=== PATIENT | male | born 1975 | race Caucasian/White ===

== ENCOUNTER → 2017-12-26 08:50 | Outpatient (CLI) | payer OTHER, SELFPAY ==
--- NOTE | 2017-12-26 | DI.CT.S_ITS ---
PROCEDURE: CT CHEST W CON INDICATIONS: 42-year-old male with remote history of colon cancer, with left supraclavicular palpable mass. TECHNIQUE: After the administration of intravenous contrast, 2 mm and 5 mm thick sections acquired from the pulmonary apices to the posterior costophrenic angles. 7 mm thick coronal and sagittal MIP reformats were acquired. For radiation dose reduction, the following was used: automated exposure control, adjustment of mA and/or kV according to patient size. COMPARISON: None. FINDINGS: Image quality: Excellent. Lungs and pleura: No acute air space opacities. No pleural effusions or pneumothorax. Central and peripheral airways are patent and normal in caliber. Mediastinum: Heart size is normal. No pericardial effusion. No mediastinal or hilar adenopathy by size criteria. Thoracic aorta and central pulmonary arteries are normal in size. Esophagus is normal in caliber. No hiatal hernia. Bones and chest wall: No suspicious bony lesions. No vertebral body compression fractures. No axillary or supraclavicular adenopathy by size criteria. Thyroid gland is normal in size. Abdomen: Visualized upper abdominal solid organs appear normal. Upper abdominal bowel loops are normal in caliber. IMPRESSION: No imaging correlate with palpable left supraclavicular mass. Dictated by: Dave Campuzano M.D. on 12/26/2017 at 13:00 Approved by: Dave Campuzano M.D. on 12/26/2017 at 13:38
== END ==
PROVIDERS: Family Provider Family Medicine; PCP Family Medicine; Visit Provider Family Medicine
DX: M54.2 Cervicalgia (principal); R22.2 Localized swelling, mass and lump, trunk; Z85.038 Personal history of other malignant neoplasm of large intestine
CPT/HCPCS: 71260; Q9967

== ENCOUNTER 2018-05-05 20:24 | Emergency (ER) | payer OTHER, SELFPAY ==
[2018-05-05] VITALS (7 sets, daily range): BP systolic 114–147; BP diastolic 64–93; PULSE 87–102; RESP 12–22; TEMP 37.8; O2SAT 16–100; BMI 31.4
--- NOTE | 2018-05-05 20:44 | DI.RAD.S_ITS ---
PROCEDURE: XR CHEST 1V INDICATIONS: suspected sepsis, Left low chest pain. TECHNIQUE: One view of the chest was acquired. COMPARISON: [facility], , CHEST 2 VIEW, 04/06/2014, 19:15. FINDINGS: Surgical changes and devices: None. Lungs and pleura: No pleural effusions or pneumothorax. Lungs are clear. Mediastinum: Mediastinal contours appear normal. Heart size is normal. Bones and chest wall: No suspicious bony lesions. Overlying soft tissues appear unremarkable. IMPRESSION: 1. No acute cardiopulmonary disease. Dictated by: Bhavin Felton M.D. on 05/05/2018 at 20:59 Approved by: Bhavin Felton M.D. on 05/05/2018 at 20:59
[2018-05-05] MEDS: SODIUM CHLORIDE 0.9% 1,000 ML 1000 ML IV (20:49)
[2018-05-05 20:51] LABS: Add Manual Diff / Slide Review NO; Basophils Percent Auto 0.4 % (0-2); Eosinophils Percent Auto 1.4 % (2-4); Hematocrit 42.6 % (41-53); Hemoglobin 14.6 g/dL (13.5-17.5); Lymphocytes Percent Auto 15.2 % (25-40); Mean Corpuscular HGB Conc 34.1 % (30-36); Mean Corpuscular Hemoglobin 28.4 PG (26-34); Mean Corpuscular Volume 83.1 fL (80-100); Monocytes Percent Auto 9.2 % (3-14); Neutrophils Absolute Auto 12200 /uL (3000-5900); Neutrophils Percent Auto 73.8 % (50-75); Platelet Count 252 X10^3/uL (150-400); Red Blood Cell Count 5.13 X10^6/uL (4.5-5.9); Red Cell Distribution Width 12.7 % (11.6-14.8); White Blood Cell Count 16.5 X10^3/uL (4.5-11.0)
[2018-05-05 21:02] LABS: INR 1.1 (0.9-1.3); Prothrombin Time 11.6 SECONDS (10.1-12.7)
[2018-05-05 21:04] LABS: PTT Partial Thromboplastin Tim 26 SECONDS (26.4-36.2)
--- NOTE | 2018-05-05 21:05 | DI.CT.S_ITS ---
PROCEDURE: CT ANGIO CHEST PE PROTOCOL INDICATIONS: hx of colon cancer, left sided chest pain TECHNIQUE: After the administration of intravenous contrast, 2 mm thick sections acquired from the pulmonary apices to the posterior costophrenic angles. 3-dimensional maximum intensity projection (MIP) coronal and sagittal reformats were then acquired through the thorax. For radiation dose reduction, the following was used: automated exposure control, adjustment of mA and/or kV according to patient size. COMPARISON: [facility], CT, CT CHEST [facility], 12/26/2017, 8:56. FINDINGS: Image quality: Excellent. Pulmonary arteries: Pulmonary arteries are normal in size, and demonstrate no intraluminal filling defects to suggest central pulmonary embolism. Lungs and pleura: There is a small left pleural effusion. Mild dependent atelectasis is present. No focal consolidation. No suspicious mass lesions. The trachea and central airways appear patent. Mediastinum: Heart size is normal, without pericardial effusion. No mediastinal or hilar adenopathy. Thoracic aorta is normal in caliber and enhancement. Esophagus is normal in caliber, without hiatal hernia. Bones and chest wall: No suspicious bony lesions. Ribs and thoracic spine appear intact throughout. Thyroid gland demonstrates no discrete nodules. No axillary or supraclavicular adenopathy. Abdomen: Visualized upper abdominal solid organs appear normal in the early arterial phase of enhancement. IMPRESSION: 1. No evidence of pulmonary embolism. 2. Small nonspecific left pleural effusion. 3. No definite evidence of thoracic metastatic disease. Dictated by: Bhavin Felton M.D. on 05/05/2018 at 21:59 Approved by: Bhavin Felton M.D. on 05/05/2018 at 22:09
--- NOTE | 2018-05-05 21:05 | DI.CT.S_ITS ---
PROCEDURE: CT ABDOMEN PELVIS W CON INDICATIONS: left upper swelling pain, hx of colon cancer TECHNIQUE: After the administration of intravenous contrast, 5 mm thick sections acquired from the diaphragm to the symphysis. 5 mm coronal and sagittal reformats were acquired. For radiation dose reduction, the following was used: automated exposure control, adjustment of mA and/or kV according to patient size. COMPARISON: None. FINDINGS: Image quality: Excellent. ABDOMEN: Lung bases: There is a small left pleural effusion. Mild dependent atelectasis demonstrated bilaterally. Heart size is normal. Solid organs: Liver demonstrates no focal hepatic lesions. Gallbladder appears within normal limits without calcified gallstones. Biliary system is non dilated. Pancreas enhances normally. Spleen is normal in size and enhancement. No adrenal nodules. Kidneys demonstrate no hydronephrosis. There is a small left renal cyst. Peritoneum and bowel: Small bowel loops demonstrate normal wall thickness and caliber. There are postsurgical changes in the sigmoid colon consistent with partial colectomy. There is mild bowel wall thickening in the rectum. No free fluid or air. Nodes and vessels: No retroperitoneal or mesenteric adenopathy by size criteria. Aorta and inferior vena cava are normal in size. Miscellaneous: No ventral hernias. PELVIS: Genitourinary: Bladder wall thickness is normal. Miscellaneous: No inguinal hernias or adenopathy. Bones: No suspicious bony lesions. No vertebral body compression fractures. IMPRESSION: 1. Postsurgical changes status post partial colectomy. Mild segmental bowel wall thickening demonstrated in the rectum is nonspecific and may reflect a mild colitis. Recommend correlation clinically and colonoscopy if indicated. 2. Small left pleural effusion. 3. Elsewhere, no definite evidence of metastatic disease in abdomen or pelvis. Dictated by: Bhavin Felton M.D. on 05/05/2018 at 22:09 Approved by: Bhavin Felton M.D. on 05/05/2018 at 22:16
[2018-05-05 21:08] LABS: Alanine Aminotransferase 28 IU/L (21-72); Albumin 4.6 g/dL (3.5-5.0); Albumin Globulin Ratio 1.4 (1.0-2.8); Alkaline Phosphatase 57 U/L (38-126); Aspartate Aminotransferase 29 IU/L (17-59); BUN Creatinine Ratio 14.4 (6-22); Blood Urea Nitrogen 13 mg/dL (9-20); Calcium 9.4 mg/dL (8.4-10.2); Carbon Dioxide 29 mmol/L (22-32); Chloride 102 mmol/L (98-107); Creatine Kinase 117 U/L (55-170); Estimated Glomerular Filt Rate > 60.0 mL/min (>60); Globulin 3.2 g/dL (1.7-4.1); Glucose 108 mg/dL (70-100); HEMOLYSIS < 15 (0-50); Lipase 77 U/L (23-300); Potassium 3.5 mmol/L (3.4-5.1); Sodium 141 mmol/L (137-145); Total Protein 7.8 g/dL (6.3-8.2)
--- NOTE | 2018-05-05 21:08 | ED.CHESTPAIN ---
HPI - Chest Pain General Chief Complaint: Chest Pain Stated Complaint: COUGH DIZZY CHEST PAIN Time Seen by Provider: 05/05/18 20:47 Source: patient Mode of arrival: ambulatory Limitations: no limitations History of Present Illness HPI narrative: the patient is a 43-year-old male who presents with left-sided chest pain. States that he has had some pain and productive cough since April 24. 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 He does not notice any pain or discomfort while working but once home he has significant pain on the left. It sometimes hurts when he takes a deep breath. He denies feeling short of breath he is not dizzy or lightheaded. He states that his productive cough has overall gotten a little bit better his. He was sent from the walk-in clinic actually for inverted T-waves. No known history of coronary artery disease. He does have a history of colon cancer. both he and state that sometimes his left upper abdomen is swollen. He has not had any night sweats no significant weight loss. He took Motrin 600 mg earlier today. Frequent PVCs noted on monitor. He states that he does drink half pot of coffee daily. Denies any drug use or alcohol. He denies heart palpitations dizziness or lightheadedness. Related Data Home Medications Medication Instructions Recorded Confirmed aspirin 81 mg PO DAILY 05/05/18 05/05/18 atorvastatin 20 mg PO DAILY 05/05/18 05/05/18 hydrochlorothiazide 25 mg PO DAILY 05/05/18 05/05/18 Previous Rx's Medication Instructions Recorded levofloxacin 750 mg PO DAILY #5 tab 05/05/18 Allergies Allergy/AdvReac Type Severity Reaction Status Date / Time Penicillins Allergy Unknown Verified 05/05/18 20:30 Review of Systems Review of Systems All systems reviewed & are unremarkable except as noted in HPI and below Constitutional Reports body ache(s), Reports fatigue and Reports fever(s) Eyes Denies change in vision, Denies eye discharge, Denies irritation and Denies loss of vision ENT Ears, Nose, Mouth, and Throat: Denies change in voice, Denies neck pain and Denies sore throat Cardiovascular Reports as per HPI, Denies dyspnea and Denies dyspnea on exertion Respiratory Reports cough, Reports pain with cough, Denies dyspnea, Denies dyspnea on exertion and Denies wheezing Gastrointestinal Gastrointestinal: Reports as per HPI, Reports abdominal pain, Denies nausea and Denies vomiting Genitourinary Denies hematuria, Denies flank pain, Denies urinary incontinence and Denies urinary urgency Musculoskeletal Denies neck pain Integumentary/Breasts Denies pruritus, Denies erythema, Denies rash and Denies wounds Neurologic Denies loss of vision Endocrine Reports fatigue Allergic/Immunologic Denies wheezing PFSH Medical History Colon cancer (Acute ~2009) Social History Smoking Status: Never smoker Exam Initial Vital Signs Initial Vital Signs: Vital Signs Temperature 100.0 F H 05/05/18 20:26 Pulse Rate 102 H 05/05/18 20:26 Respiratory Rate 18 05/05/18 20:26 Blood Pressure 133/84 05/05/18 20:26 Pulse Oximetry 100 05/05/18 20:26 GENERAL: Well-appearing, well-nourished and in no acute distress. HEENT: Head atraumatic,EOMI, pupils reactive, face symmetric, neck is supple no cervical lymphadenopathy CARDIOVASCULAR: Regular rate and rhythm without murmurs, rubs or gallops. RESPIRATORY: Breath sounds equal bilaterally, no wheezes rales or rhonchi. Speaks in full sentences no respiratory distress ABDOMEN: Soft, nontender. Normoactive bowel sounds all 4 quadrants. No guarding or rebound. No swelling appreciated in the left upper quadrant masses surgical scar noted from umbilical to pubic bone EXTREMITIES: Normal range of motion, no clubbing or edema. Neurovascularly intact NEUROLOGICAL: Alert and oriented x4.Normal gait and speech. Cranial nerves II through XII grossly intact. SKIN: Warm, dry, no laceration, no petechiae, no rashes or lesions. Course Orders Ordered: ED Orders 05/05/18 20:40 Complete Blood Count AUTO DIFF Stat Comprehensive Metabolic Panel Stat Lactate (Lactic Acid) Stat Lipase Stat Partial Thromboplastin Time Stat Procalcitonin Stat Prothrombin Time INR Stat Troponin & CK Cardiac Panel Stat 05/05/18 20:44 XR chest 1V Stat 05/05/18 20:45 EKG-12 Lead Stat 05/05/18 20:57 Blood Culture Stat 05/05/18 21:05 CT abdomen pelvis w con Stat CT angio chest PE protocol Stat Discontinued Medications Acetaminophen (Tylenol) 650 mg PO NOW ONE Stop: 05/05/18 21:06 Last Admin: 05/05/18 21:18 Dose: 650 mg Sodium Chloride (Normal Saline 0.9%) 1,000 mls @ 1,000 mls/hr IV BOLUS ONE Stop: 05/05/18 21:43 Last Infusion: 05/05/18 22:08 Dose: 1,000 mls/hr Admin: 05/05/18 20:49 Dose: 1,000 mls/hr Levofloxacin (Levaquin) 750 mg PO DAILY CRYS Levofloxacin (Levaquin) 750 mg PO NOW ONE Stop: 05/05/18 23:09 Last Admin: 05/05/18 23:14 Dose: 750 mg Metoprolol Tartrate (Lopressor) 2.5 mg IV NOW ONE Stop: 05/05/18 22:33 Last Admin: 05/05/18 22:59 Dose: Not Given Vital Signs - 8 hr 05/05/18 20:26 05/05/18 20:57 05/05/18 21:00 Temperature 100.0 F H Pulse Rate 102 H 97 H 95 H Respiratory Rate 18 12 18 Blood Pressure 133/84 Blood Pressure [Left Arm] 130/77 147/93 H Pulse Oximetry 100 98 05/05/18 21:30 05/05/18 21:35 05/05/18 22:00 Temperature 100.0 F H Pulse Rate 100 H 100 H 97 H Respiratory Rate 22 22 Blood Pressure 133/84 Blood Pressure [Left Arm] 133/66 115/70 Pulse Oximetry 98 16 L 05/05/18 22:30 Temperature Pulse Rate 87 Respiratory Rate 19 Blood Pressure Blood Pressure [Left Arm] 114/64 Pulse Oximetry MDM - Chest Pain Medical Records Data Attestation: I reviewed the patient's medical records. Lab Data Attestation: I reviewed the patient's lab results. Result diagrams: 05/05/18 20:40 05/05/18 20:40 Lab Results 05/05/18 05/05/18 05/05/18 Range/Units 20:40 20:40 20:40 WBC 16.5 H (4.5-11.0) X10^3/uL RBC 5.13 (4.5-5.9) X10^6/uL Hgb 14.6 (13.5-17.5) g/dL Hct 42.6 (41-53) % MCV 83.1 (80-100) fL MCH 28.4 (26-34) PG MCHC 34.1 (30-36) % RDW 12.7 (11.6-14.8) % Plt Count 252 (150-400) X10^3/uL Neut % (Auto) 73.8 (50-75) % Lymph % (Auto) 15.2 L (25-40) % Eaton % (Auto) 9.2 (3-14) % Eos % (Auto) 1.4 L (2-4) % Baso % (Auto) 0.4 (0-2) % Neut # (Auto) 22000 H (0350-4589) /uL PT 11.6 (10.1-12.7) SECONDS INR 1.1 (0.9-1.3) APTT 26 L (26.4-36.2) SECONDS Sodium (137-145) mmol/L Potassium (3.4-5.1) mmol/L Chloride (98-107) mmol/L Carbon Dioxide (22-32) mmol/L BUN (9-20) mg/dL Creatinine (0.66-1.25) mg/dL Estimated GFR (>60) mL/min BUN/Creatinine Ratio (6-22) Glucose (70-100) mg/dL Lactate (0.7-2.1) mmol/L Calcium (8.4-10.2) mg/dL Total Bilirubin (0.2-1.3) mg/dL AST (17-59) IU/L ALT (21-72) IU/L Alkaline Phosphatase (38-126) U/L Total Creatine Kinase (55-170) U/L CK-MB (CK-2) (<2.37) ng/mL CK-MB (CK-2) Rel Index (1.5-5.0) % Troponin I (0.01-0.034) ng/mL Total Protein (6.3-8.2) g/dL Albumin (3.5-5.0) g/dL Globulin (1.7-4.1) g/dL Albumin/Globulin Ratio (1.0-2.8) Lipase (23-300) U/L Procalcitonin < 0.05 (<0.5) ng/mL 05/05/18 05/05/18 05/05/18 Range/Units 20:40 20:40 20:40 WBC (4.5-11.0) X10^3/uL RBC (4.5-5.9) X10^6/uL Hgb (13.5-17.5) g/dL Hct (41-53) % MCV (80-100) fL MCH (26-34) PG MCHC (30-36) % RDW (11.6-14.8) % Plt Count (150-400) X10^3/uL Neut % (Auto) (50-75) % Lymph % (Auto) (25-40) % Eaton % (Auto) (3-14) % Eos % (Auto) (2-4) % Baso % (Auto) (0-2) % Neut # (Auto) (1788-5299) /uL PT (10.1-12.7) SECONDS INR (0.9-1.3) APTT (26.4-36.2) SECONDS Sodium 141 (137-145) mmol/L Potassium 3.5 (3.4-5.1) mmol/L Chloride 102 (98-107) mmol/L Carbon Dioxide 29 (22-32) mmol/L BUN 13 (9-20) mg/dL Creatinine 0.90 (0.66-1.25) mg/dL Estimated GFR > 60.0 (>60) mL/min BUN/Creatinine Ratio 14.4 (6-22) Glucose 108 H (70-100) mg/dL Lactate 0.7 (0.7-2.1) mmol/L Calcium 9.4 (8.4-10.2) mg/dL Total Bilirubin 1.0 (0.2-1.3) mg/dL AST 29 (17-59) IU/L ALT 28 (21-72) IU/L Alkaline Phosphatase 57 (38-126) U/L Total Creatine Kinase 117 (55-170) U/L CK-MB (CK-2) 0.95 (<2.37) ng/mL CK-MB (CK-2) Rel Index 0.8 L (1.5-5.0) % Troponin I < 0.012 (0.01-0.034) ng/mL Total Protein 7.8 (6.3-8.2) g/dL Albumin 4.6 (3.5-5.0) g/dL Globulin 3.2 (1.7-4.1) g/dL Albumin/Globulin Ratio 1.4 (1.0-2.8) Lipase 77 (23-300) U/L Procalcitonin (<0.5) ng/mL Urine Dip Bedside Urine Glucose Negative Bedside Urine Bilirubin - Negative Bedside Urine Ketone - Negative Urine Specific Hydes 1.010 Bedside Urine Occult Blood - Negative Bedside Urine pH 6.5 Bedside Urine Protein - Negative Bedside Urine Urobilinogen - Negative Bedside Urine Nitrite - Negative Bedside Urine Leukocytes - Negative Esterase Imaging Data CT PE: Radiologist's impression: PROCEDURE: CT ANGIO CHEST PE PROTOCOL INDICATIONS: hx of colon cancer, left sided chest pain TECHNIQUE: After the administration of intravenous contrast, 2 mm thick sections acquired from the pulmonary apices to the posterior costophrenic angles. 3-dimensional maximum intensity projection (MIP) coronal and sagittal reformats were then acquired through the thorax. For radiation dose reduction, the following was used: automated exposure control, adjustment of mA and/or kV according to patient size. COMPARISON: Located [facility], CT, CT CHEST W CON, 12/26/2017, 8:56. FINDINGS: Image quality: Excellent. Pulmonary arteries: Pulmonary arteries are normal in size, and demonstrate no intraluminal filling defects to suggest central pulmonary embolism. Lungs and pleura: There is a small left pleural effusion. Mild dependent atelectasis is present. No focal consolidation. No suspicious mass lesions. The trachea and central airways appear patent. Mediastinum: Heart size is normal, without pericardial effusion. No mediastinal or hilar adenopathy. Thoracic aorta is normal in caliber and enhancement. Esophagus is normal in caliber, without hiatal hernia. Bones and chest wall: No suspicious bony lesions. Ribs and thoracic spine appear intact throughout. Thyroid gland demonstrates no discrete nodules. No axillary or supraclavicular adenopathy. Abdomen: Visualized upper abdominal solid organs appear normal in the early arterial phase of enhancement. IMPRESSION: 1. No evidence of pulmonary embolism. 2. Small nonspecific left pleural effusion. 3. No definite evidence of thoracic metastatic disease. Dictated by: Bhavin Felton M.D. on 05/05/2018 at 21:59 CT scan - abdomen: Radiologist's impression: PROCEDURE: CT ABDOMEN PELVIS W CON INDICATIONS: left upper swelling pain, hx of colon cancer TECHNIQUE: After the administration of intravenous contrast, 5 mm thick sections acquired from the diaphragm to the symphysis. 5 mm coronal and sagittal reformats were acquired. For radiation dose reduction, the following was used: automated exposure control, adjustment of mA and/or kV according to patient size. COMPARISON: None. FINDINGS: Image quality: Excellent. ABDOMEN: Lung bases: There is a small left pleural effusion. Mild dependent atelectasis demonstrated bilaterally. Heart size is normal. Solid organs: Liver demonstrates no focal hepatic lesions. Gallbladder appears within normal limits without calcified gallstones. Biliary system is non dilated. Pancreas enhances normally. Spleen is normal in size and enhancement. No adrenal nodules. Kidneys demonstrate no hydronephrosis. There is a small left renal cyst. Peritoneum and bowel: Small bowel loops demonstrate normal wall thickness and caliber. There are postsurgical changes in the sigmoid colon consistent with partial colectomy. There is mild bowel wall thickening in the rectum. No free fluid or air. Nodes and vessels: No retroperitoneal or mesenteric adenopathy by size criteria. Aorta and inferior vena cava are normal in size. Miscellaneous: No ventral hernias. PELVIS: Genitourinary: Bladder wall thickness is normal. Miscellaneous: No inguinal hernias or adenopathy. Bones: No suspicious bony lesions. No vertebral body compression fractures. IMPRESSION: 1. Postsurgical changes status post partial colectomy. Mild segmental bowel wall thickening demonstrated in the rectum is nonspecific and may reflect a mild colitis. Recommend correlation clinically and colonoscopy if indicated. 2. Small left pleural effusion. 3. Elsewhere, no definite evidence of metastatic disease in abdomen or pelvis. Dictated by: Bhavin Felton M.D. on 05/05/2018 at 22:09 ECG Data Attestation: I personally reviewed and interpreted this ECG as follows: Prior ECG tracings: available for review Interpretation: Sinus rhythm rate 92 T-wave inversions noted in V3 V4 V5 and V6. With frequent PVCs. No acute ST changes. He does have T-wave inversion from 2014 [facility] Narrative Medical decision making narrative: Patient does have frequent PVCs they do seem to slow down while he is in the ED does still present. He is asymptomatic with PVCs with a may be contributing to his chest discomfort. His he does have low-grade fever he has increased worsening cough. Leukocytosis noted. His does not appear septic or toxic. He feels able to go home. Will put him on Levaquin for a symptoms of atypical pneumonia. Discharge Plan Departure Patient Disposition: Home Clinical Impression: Frequent PVCs, Atypical pneumonia Discharge Date/Time: 05/05/18 23:27 Interventions: ED Discharge Assessment Last Done: 05/05/18 23:26 Instructions: Premature Ventricular Beats, Atypical Pneumonia Activity Restrictions/Additional Instructions: *You have been diagnosed with Atypical pneumonia, PVC *What to do: decrease caffeine intake increase water or Gatorade, blood work and CT scans are within normal limits today and *Continue to take medications as directed Levaquin 750 mg 1 tablet once a day for 5 day *Follow up with your primary care provider in 2-3 days *Return to ER if you should have Increasing chest pain, shortness of breath, fever not controlled, or any new or worsening symptoms Prescriptions: New levofloxacin 750 mg tablet 750 mg PO DAILY Qty: 5 RF: 0 No Action atorvastatin 20 mg Tablet 20 mg PO DAILY RF: 0 aspirin 81 mg Tablet,Chewable 81 mg PO DAILY RF: 0 hydrochlorothiazide 25 mg Tablet 25 mg PO DAILY RF: 0 Referrals: Addy Lucas MD [Primary Care Provider] -
[2018-05-05 21:09] LABS: Lactate (Lactic Acid) 0.7 mmol/L (0.7-2.1)
[2018-05-05] MEDS: ACETAMINOPHEN 325 MG TABLET 650 MG PO (21:18)
[2018-05-05 21:20] LABS: Troponin I < 0.012 ng/mL (0.01-0.034)
[2018-05-05 21:23] LABS: CKMB % Relative Index 0.8 % (1.5-5.0); Creatine Kinase MB 0.95 ng/mL (<2.37)
[2018-05-05 21:28] LABS: Procalcitonin < 0.05 ng/mL (<0.5)
[2018-05-05] MEDS: levoFLOXacin 250 MG TABLET 750 MG PO (23:14)
== END 2018-05-05 23:27 | disposition home or self-care (01) ==
PROVIDERS: Emergency Provider Emergency Medicine; Family Provider Family Medicine; PCP Family Medicine
DX: I49.3 Ventricular premature depolarization (principal); J18.9 Pneumonia, unspecified organism
CPT/HCPCS: 36415; 36591; 71045; 71275; 74177; 80053; 81003; 82550; 82553; 83605; 83690; 84145; 84484; 85025; 85610; 85730; 87040; 93005; 93010; 96360; 99283; 99285; Q9967

== ENCOUNTER → 2018-05-15 12:46 | Outpatient (CLI) | payer OTHER, SELFPAY ==
--- NOTE | 2018-05-15 | DI.MRI.S_ITS ---
PROCEDURE: MR STROKE Pre- and post-contrast brain MRI, non-contrast brain MR angiogram, pre- and postcontrast neck MR angiogram INDICATIONS: dizzy, vomiting slurred speech TECHNIQUE: Brain: Noncontrast axial T1 spin echo, axial T2 fast spin echo, sagittal and axial FLAIR, coronal T2 fast spin echo, axial gradient echo, axial diffusion and ADC through the brain. After the administration of contrast, axial 3D VIBE of the cranial vasculature and brain. Brain MRA: Non-contrast 3-D time of flight MR angiogram, with multiple lrrogyx-uqxwdusip-tmvhgfewfn (MIP) reformats performed. Neck MRA: Axial and sagittal TruFISP through the neck. Coronal dynamic MR angiogram during administration of contrast in the arterial and venous phases, with 3-dimenstional dysrwur-xdweitvih-eaqthfnxgr (MIP) reformats constructed from subtraction images. COMPARISON: [facility], CT, CT ANGIO CHEST PE PROTOCOL, 05/05/2018, 21:13. FINDINGS: Image quality: Excellent. BRAIN: CSF spaces: Ventricles are normal in size and shape. Basal cisterns are patent. An arachnoid cyst is seen involving the midline of the posterior fossa. Brain: No intracranial bleeds or mass effects. Garber-white matter interface is normal. Diffusion weighted images show no acute ischemic insults. Brainstem appears normal. Normal intravascular flow voids are present. No abnormal intracranial enhancement. Skull and face: Calvarial marrow signal is normal. Orbits appear normal. Sinuses: Moderate mucosal thickening is seen within the left maxillary sinus. Milder mucosal thickening is seen elsewhere within the paranasal. There is mild to moderate abnormal fluid seen within the left mastoid air cells BRAIN MR ANGIOGRAM: Anterior circulation: Intracranial internal carotid arteries are normal in size and enhancement. The flow within the paired anterior cerebral arteries is normal and symmetric. The flow within the middle cerebral arteries is normal and symmetric. The anterior communicating artery is not well seen. No stenoses, occlusions, or aneurysms. Posterior circulation: The visualized portions of the vertebral arteries demonstrate normal caliber, and join to form a normal appearing basilar artery. The posterior communicating arteries are both well-seen. The flow within the posterior cerebral arteries is normal and symmetric. No stenoses, occlusions, or aneurysms. NECK MR ANGIOGRAM: Carotids: Great vessels demonstrate a conventional anatomy as they arise from the aortic arch. The origins of the common carotid arteries appear patent. The calibers and courses of both common carotid arteries are normal. The bifurcation regions appear normal bilaterally. The internal carotid arteries demonstrate normal course and caliber. Posterior circulation: The origins of the vertebral arteries appear patent. More superior portions of both vertebral arteries demonstrate normal course and caliber, and join to form a normal appearing basilar artery. The left vertebral artery is dominant to the right. Miscellaneous: Subclavian arteries appear patent. Pre-contrast images through the neck show no soft tissue abnormalities. IMPRESSION: BRAIN MRI: No findings of acute or subacute infarction can be seen. No masses or abnormal enhancement can be seen. Paranasal sinus disease is seen, which is most prominent within left maxillary sinus. There is also abnormal fluid seen within the left mastoid air cells. Please correlate with potential clinical findings of mastoiditis. An arachnoid cyst incidentally noted involving the midline of the posterior fossa. BRAIN MR ANGIOGRAM: No significant intracranial arterial abnormality is seen. NECK MR ANGIOGRAM: No hemodynamically significant stenosis can be seen of the arteries of the neck. Dictated by: Myles Walker M.D. on 05/15/2018 at 13:23 Approved by: Myles Walker M.D. on 05/15/2018 at 13:28
== END ==
PROVIDERS: Family Provider Family Medicine; PCP Family Medicine; Visit Provider Family Medicine
DX: R42 Dizziness and giddiness (principal); R11.10 Vomiting, unspecified; R47.81 Slurred speech; J32.0 Chronic maxillary sinusitis; G93.0 Cerebral cysts
CPT/HCPCS: 70553; A9579

== ENCOUNTER → 2019-11-06 10:02 | Outpatient (CLI) | payer OTHER, SELFPAY ==
--- NOTE | 2019-11-06 | DI.RAD.S_ITS ---
PROCEDURE: XR CHEST 2V INDICATIONS: COUGH TECHNIQUE: 2 views of the chest were acquired. COMPARISON: [facility], CT, CT ANGIO CHEST PE PROTOCOL, 05/05/2018, 21:13. [facility], CR, XR CHEST 1V, 05/05/2018, 20:48. [facility], CR, CHEST 2 VIEW, 04/06/2014, 19:15. FINDINGS: Surgical changes and devices: None. Lungs and pleura: Lungs are clear. No pleural effusions or pneumothorax. Mediastinum: Mediastinal contours are normal. Heart size is normal. Bones and chest wall: No suspicious bony abnormalities. Soft tissues appear unremarkable. IMPRESSION: No acute cardiopulmonary abnormality. Dictated by: Tony Hart M.D. on 11/06/2019 at 10:14 Approved by: Tony Hart M.D. on 11/06/2019 at 10:16
== END ==
PROVIDERS: Family Provider Family Medicine; Referring Provider Family Medicine; Visit Provider Family Medicine
DX: R05 Cough (principal)
CPT/HCPCS: 71046

== ENCOUNTER 2020-03-19 20:17 | Emergency (ER) | payer OTHER, SELFPAY ==
[2020-03-19 20:25] VITALS: BP 117/75; PULSE 87; RESP 18; TEMP 36.9; O2SAT 96; BMI 33.0
[2020-03-19 20:32] VITALS: PULSE 82; RESP 16; O2SAT 94
--- NOTE | 2020-03-19 20:41 | ED_ITS ---
HPI - Syncope General Chief Complaint: Syncope Stated Complaint: Syncope Time Seen by Provider: 03/19/20 20:25 Source: patient, family and EMS Mode of arrival: EMS Limitations: no limitations History of Present Illness HPI narrative: Patient brought in by ambulance. at bedside. Syncopal episode 10 seconds duration. Patient status post left lower tooth root canal. Done in [place] Dr. Raj Finley. Office [phone], after hours [phone] patient states he bleeds very easily. He was bleeding when he left the office and continue to bleed at home. Surgery was 330 this afternoon. Patient was laying on the couch and told his he was feeling dizzy. Past at 10 seconds. Continues bleeding. Systolic blood pressure 80 by EMS. Accu-Chek 150. Is not on any blood thinners complaint: loss of consciousness Related Data Home Medications Medication Instructions Recorded Confirmed aspirin 81 mg PO DAILY 05/05/18 05/05/18 atorvastatin 20 mg PO DAILY 05/05/18 05/05/18 hydrochlorothiazide 25 mg PO DAILY 05/05/18 05/05/18 Previous Rx's Medication Instructions Recorded levofloxacin 750 mg PO DAILY #5 tab 05/05/18 Allergies Allergy/AdvReac Type Severity Reaction Status Date / Time Penicillins Allergy Unknown Verified 05/05/18 20:30 Review of Systems Review of Systems Narrative: GENERAL: Denies chills, fatigue, malaise, fever, sweats. HEENT: Denies sinus pain, ear pain, sore throat, difficulty swallowing, dizziness. RESPIRATORY: Denies dyspnea, cough, wheezing, hemoptysis, sputum. CARDIOVASCULAR: Denies chest pain, palpitations, orthopnea, edema, complaint syncope GASTROINTESTINAL: Denies nausea, vomiting, abdominal pain, diarrhea, constipation, melena. : Denies dysuria, frequency, incontinence, hematuria, urinary retention. MUSCULOSKELETAL: denies weakness, joint pain, or bony pain SKIN: Denies rash, skin lesions, or other NEUROLOGIC: Denies weakness, headache, numbness, change in speech, confusion, seizures, incoordination. PSYCHIATRIC: No concerning psychosocial issues. ROS Unobtainable: All systems reviewed & are unremarkable except as noted in HPI and below Patient History Medical History Colon cancer (Acute ~2008) Social History Smoking Status: Never smoker Smoking Status: Never smoker alcohol intake frequency: 0-2 drinks per day Substance Use Type: does not use Exam Narrative Exam Narrative: GENERAL: patient appears stated age. Well-nourished, well-develo ped patient, in no distress, not toxic HEAD: Atraumatic. Normocephalic. EYES: Pupils equal round and reactive. Extraocular motions intact. No scleral icterus. No injection or drainage. Pale conjunctiva ENT: Nose without bleeding, purulent drainage. Throat without erythema, tonsillar hypertrophy or exudate. Airway patent. Bleeding surrounding the gums surgical area left lower molar, edema of the mandible NECK: Trachea midline. Non tender CARDIOVASCULAR: Regular rate and rhythm without murmurs, gallops, or rubs. RESPIRATORY: Clear to auscultation. Breath sounds equal bilaterally. No wheezes, rales, or rhonchi. GASTROINTESTINAL: Abdomen soft, non-tender, nondistended. EXTREMITIES: No edema or joint tenderness. BACK: Nontender without deformity or crepitance. No flank tenderness. NEURO: AOx3. SKIN: No rash or erythema of visible areas PSYCH: Not anxious, is cooperative Initial Vital Signs Initial Vital Signs: Vital Signs Temperature 98.4 F 03/19/20 20:25 Pulse Rate 87 03/19/20 20:25 Respiratory Rate 18 03/19/20 20:25 Blood Pressure 117/75 03/19/20 20:25 Pulse Oximetry 96 03/19/20 20:25 Course Orders Ordered: ED Orders 03/19/20 20:35 Complete Blood Count AUTO DIFF Stat Comprehensive Metabolic Panel Stat Prothrombin Time INR Stat Troponin & CK Cardiac Panel Stat 03/19/20 20:44 EKG-12 Lead Stat Reevaluation(s) Reevaluation #1: Bleeding has completely stopped. Blood pressure 118/74. Rate of 91 patient feels much better. and patient desire discharge home Time: 22:17 Consultations Consultation #1: I spoke with Dr. Bandar Finley, he states the bleeding is co mmon after these type of procedures. Now that bleeding is. He will want to see patient in the morning in the office. Help patient call in the morning. No further treatment indicated. Patient is on clindamycin. White cell count noted. Time: 22:17 Vital Signs Vital signs: Vital Signs - 8 hr 03/19/20 20:25 03/19/20 20:32 03/19/20 21:00 Temperature 98.4 F Pulse Rate 87 82 86 Respiratory Rate 18 16 17 Blood Pressure 117/75 111/76 Pulse Oximetry 96 94 95 03/19/20 21:30 03/19/20 22:00 Temperature Pulse Rate 87 84 Respiratory Rate 21 17 Blood Pressure 115/72 118/74 Pulse Oximetry 96 95 MDM - Syncope Differential Diagnosis Differential diagnosis: Likely vasovagal syncope Lab Data Attestation: I reviewed the patient's lab results. Result diagrams: 03/19/20 20:35 03/19/20 20:35 Labs: Lab Results 03/19/20 03/19/20 03/19/20 Range/Units 20:35 20:35 20:35 WBC 18.4 H (4.5-11.0) X10^3/uL RBC 4.74 (4.5-5.9) X10^6/uL Hgb 13.6 (13.5-17.5) g/dL Hct 39.7 L (41-53) % MCV 83.7 (80-100) fL MCH 28.6 (26-34) PG MCHC 34.2 (30-36) % RDW 12.9 (11.6-14.8) % Plt Count 247 (150-400) X10^3/uL Neut % (Auto) 70.4 (50-75) % Lymph % (Auto) 14.2 L (25-40) % [place] % (Auto) 13.5 (3-14) % Eos % (Auto) 1.7 L (2-4) % Baso % (Auto) 0.2 (0-2) % Neut # (Auto) 74378 H (8634-6403) /uL Lymph # (Auto) 2600 (4250-5314) /uL [place] # (Auto) 2500 H (0-900) /uL Eos # (Auto) 300 (0-450) /uL Baso # (Auto) 0 (0-100) /uL PT 12.4 (10.1-12.7) SECONDS INR 1.1 (0.9-1.3) Sodium 138 (137-145) mmol/L Potassium 3.7 (3.4-5.1) mmol/L Chloride 108 H (98-107) mmol/L Carbon Dioxide 23 (22-32) mmol/L BUN 18 (9-20) mg/dL Creatinine 1.37 H (0.66-1.25) mg/dL Estimated GFR 56.4 L (>60) mL/min BUN/Creatinine Ratio 13.1 (6-22) Glucose 165 H (70-100) mg/dL Calcium 8.5 (8.4-10.2) mg/dL Total Bilirubin 0.6 (0.2-1.3) mg/dL AST 26 (17-59) IU/L ALT 34 (<50) IU/L Alkaline Phosphatase 53 (38-126) U/L Total Creatine Kinase 49 L (55-170) U/L CK-MB (CK-2) TNP CK-MB (CK-2) Rel Index TNP Troponin I < 0.012 (0.01-0.034) ng/mL Total Protein 6.7 (6.3-8.2) g/dL Albumin 3.6 (3.5-5.0) g/dL Globulin 3.1 (1.7-4.1) g/dL Albumin/Globulin Ratio 1.2 (1.0-2.8) ECG Data Attestation: I personally reviewed and interpreted this ECG as follows: Interpretation: Normal sinus rhythm rate [address] elevation or depression MDM Narrative Medical decision making narrative: . Patient given IV fluids for rehydration. No imaging indicated at this time. Spoke with patient and . Syncope likely due to blood and going down his throat and stomach. Causing vasovagal syncope. Discharge Plan Departure Patient Disposition: Home Clinical Impression: Vasovagal syncope Discharge Date/Time: 03/19/20 22:30 Instructions: DI for Syncope in Adults (Fainting) Activity Restrictions/Additional Instructions: See your oral surgeon tomorrow, Dr. Finley is expecting you in the office. Return immediately if worse or if any concerns or questions or rebleeding. Prescriptions: No Action atorvastatin 20 mg Tablet 20 mg PO DAILY RF: 0 aspirin 81 mg Tablet,Chewable 81 mg PO DAILY RF: 0 hydrochlorothiazide 25 mg Tablet 25 mg PO DAILY RF: 0 levofloxacin 750 mg tablet 750 mg PO DAILY Qty: 5 RF: 0 Referrals: Addy Lucas MD [Primary Care Provider] -
[2020-03-19 20:56] LABS: Add Manual Diff / Slide Review NO; Basophils Absolute Auto 0 /uL (0-100); Basophils Percent Auto 0.2 % (0-2); Eosinophils Absolute Auto 300 /uL (0-450); Eosinophils Percent Auto 1.7 % (2-4); Hematocrit 39.7 % (41-53); Hemoglobin 13.6 g/dL (13.5-17.5); INR 1.1 (0.9-1.3); Lymphocytes Absolute Auto 2600 /uL (1100-4500); Lymphocytes Percent Auto 14.2 % (25-40); Mean Corpuscular HGB Conc 34.2 % (30-36); Mean Corpuscular Hemoglobin 28.6 PG (26-34); Mean Corpuscular Volume 83.7 fL (80-100); Monocytes Absolute Auto 2500 /uL (0-900); Monocytes Percent Auto 13.5 % (3-14); Neutrophils Absolute Auto 12900 /uL (1500-7000); Neutrophils Percent Auto 70.4 % (50-75); Platelet Count 247 X10^3/uL (150-400); Prothrombin Time 12.4 SECONDS (10.1-12.7); Red Blood Cell Count 4.74 X10^6/uL (4.5-5.9); Red Cell Distribution Width 12.9 % (11.6-14.8); White Blood Cell Count 18.4 X10^3/uL (4.5-11.0)
[2020-03-19 21:00] VITALS: BP 111/76; PULSE 86; RESP 17; O2SAT 95
[2020-03-19 21:04] LABS: Alanine Aminotransferase 34 IU/L (<50); Albumin 3.6 g/dL (3.5-5.0); Albumin Globulin Ratio 1.2 (1.0-2.8); Alkaline Phosphatase 53 U/L (38-126); Aspartate Aminotransferase 26 IU/L (17-59); BUN Creatinine Ratio 13.1 (6-22); Bilirubin Total 0.6 mg/dL (0.2-1.3); Blood Urea Nitrogen 18 mg/dL (9-20); Calcium 8.5 mg/dL (8.4-10.2); Carbon Dioxide 23 mmol/L (22-32); Chloride 108 mmol/L (98-107); Creatine Kinase 49 U/L (55-170); Estimated Glomerular Filt Rate 56.4 mL/min (>60); Globulin 3.1 g/dL (1.7-4.1); Glucose 165 mg/dL (70-100); HEMOLYSIS 17 (0-50); Potassium 3.7 mmol/L (3.4-5.1); Sodium 138 mmol/L (137-145); Total Protein 6.7 g/dL (6.3-8.2)
[2020-03-19 21:16] LABS: Troponin I < 0.012 ng/mL (0.01-0.034)
[2020-03-19 21:30] VITALS: BP 115/72; PULSE 87; RESP 21; O2SAT 96
[2020-03-19 22:00] VITALS: BP 118/74; PULSE 84; RESP 17; O2SAT 95
== END 2020-03-19 22:30 | disposition home or self-care (01) ==
PROVIDERS: Emergency Provider Emergency Medicine; Family Provider Family Medicine; PCP Family Medicine
DX: R55 Syncope and collapse (principal); Z98.818 Other dental procedure status
CPT/HCPCS: 36415; 80053; 82550; 84484; 85025; 85610; 93005; 99283; 99284

== ENCOUNTER → 2020-10-03 16:11 | Outpatient (CLI) | payer OTHER, SELFPAY ==
[2020-10-03] MEDS: COVID-19 VACC, Ad26(JANSSEN)/PF 0.5 ML IM (16:26)
== END ==
PROVIDERS: Family Provider Family Medicine; PCP Family Medicine; Visit Provider Internal Medicine
DX: Z23 Encounter for immunization (principal)
CPT/HCPCS: 0031A; 91303

== ENCOUNTER → 2022-07-09 14:07 | Outpatient (CLI) | payer OTHER, SELFPAY ==
--- NOTE | 2022-07-09 | DI.RAD.S_ITS ---
PROCEDURE: XR FOOT LT MIN 3V INDICATIONS: Pain in left foot TECHNIQUE: 3 views of the foot were acquired. COMPARISON: None. FINDINGS: Bones: No fractures or dislocations. No suspicious bony lesions. There is a prominent ossicle lateral to the distal cuboid bone Soft tissues: No tibiotalar joint effusion. Achilles tendon appears normal. IMPRESSION: Podiatry related finding of prominent ossicle lateral to the distal cuboid bone, left foot. No trauma found. Dictated by: Geovanni Austin M.D. on 07/09/2022 at 15:52 Approved by: Geovanni Austin M.D. on 07/09/2022 at 15:53
== END ==
PROVIDERS: Family Provider Family Medicine; PCP Family Medicine; Referring Provider Family Medicine; Visit Provider Family Medicine
DX: M79.672 Pain in left foot (principal)
CPT/HCPCS: 73630

== ENCOUNTER 2024-03-16 12:53 | Day surgery (SDC) | payer BC, SELFPAY ==
[2024-03-16 13:59] VITALS: BP 138/87; PULSE 52; RESP 16; TEMP 36.2; O2SAT 100
--- NOTE | 2024-03-16 14:25 | P.HP_ITS ---
History of Present Illness History of Present Illness Date Patient Seen: 03/16/24 Time Patient Seen: 14:26 Chief complaint: [facility] [place] Narrative: 49 M hx of colon cancer in 30's no chemo here for colonoscopy. Last colonoscopy 7 yrs ago. No abdominal concerns today [facility] Medical History (Updated 04/03/20 @ 00:00 by ) Colon cancer (~2008) Social History Smoking Status: Never smoker alcohol intake: current Meds Home Medications and Allergies Home Medications Medication Instructions Recorded Confirmed Type aspirin 81 mg chewable tablet 81 mg PO DAILY 05/05/18 03/16/24 History atorvastatin 20 mg tablet 20 mg PO DAILY 05/05/18 03/16/24 History hydrochlorothiazide 25 mg tablet 25 mg PO DAILY 05/05/18 03/16/24 History sodium,potassium,mag sulfates 17.5 See Rx Instructions PO .COMPLEX 02/03/24 Rx gram-3.13 gram-1.6 gram oral soln #354 mL (Suprep Bowel Prep Kit) Allergies Allergy/AdvReac Type Severity Reaction Status Date / Time Penicillins Allergy Unknown Verified 05/05/18 20:30 Exam Vital Signs (past 8 hours): - 03/16/24 13:59 Temperature 97.2 F L Pulse Rate 52 L Respiratory Rate 16 Blood Pressure 138/87 Pulse Oximetry 100 Oxygen Delivery Method Room Air Oxygen Delivery Method Room Air Narrative Exam Narrative: General adult man alert oriented no acute distress Chest nonlabored respiration Extremities warm well perfused Assessment & Plan Assessment & Plan narrative: The patient requires colorectal screening and colonoscopy is recommended. Technical details were discussed. Risks, benefits, alternatives explained. Risks including but not limited to myocardial infarction, aspiration, bleeding, pain, missed lesion, incomplete examination, need for further radiographic studies, intestinal injury, and need for major abdominal surgery were discussed. All questions were answered to their satisfaction, and they are in agreement with this plan. Time-Based Coding :: [TOTAL MINUTES] spent with patient and on the chart (including review of chart, obtaining history, exam, reviewing outside data, placing orders, documenting exam and treatment plan, and counseling patient) on [DATE].
[2024-03-16 14:48] VITALS: BP 129/88; PULSE 94; RESP 16; TEMP 37.2; O2SAT 94
[2024-03-16 14:53] VITALS: BP 123/84; PULSE 98; RESP 20; O2SAT 95
[2024-03-16 14:58] VITALS: BP 118/69; PULSE 91; RESP 18; O2SAT 95
[2024-03-16 15:02] VITALS: BP 131/86; PULSE 84; RESP 16; O2SAT 95
--- NOTE | 2024-03-16 15:10 | P.OP.COLON_ITS ---
Operative Date/Time/Diagnoses Date of procedure: 03/16/24 Time of procedure: 15:10 Pre-op diagnosis: History of colon cancer Procedure & Clinicians Study performed: Screening colonoscopy Same procedure as scheduled: Yes Indications: Colorectal screening Surgeon: Gianni Miguel Procedure Notes Procedure in detail: The history and physical was performed/updated and the patient is ASA class is 2. The procedure was discussed in detail with the patient. Potential risks complications including infection, bleeding, missed diagnosis, perforation, need for surgery, and were explained. Their questions were answered and informed consent was obtained. Patient was brought to the procedure room and placed standard monitoring equipment. The patient's vital signs were monitored continuously throughout the entire procedure. Prior to starting time-out was performed. The patient was placed in the left lateral recumbent position. Procedural sedation was administered by anesthesia. Examination began with a thorough inspection of the perianal area there was no evidence of fissures, fistulae, external hemorrhoids or cutaneous malignancy. The colonoscopy scope was then placed into the anal canal and was advanced to the cecum, which was identified by the ileocecal valve, the appendiceal orifice and the confluence of the taenia. The scope was then slowly withdrawn examining colon thoroughly in all directions, irrigating it of any residual stool. The scope was retroflexed within the rectum The patient tolerated the procedure well. They will be discharged once criteria are met. The prep was of good/excellent quality. The withdrawl time was 7 minutes. FINDINGS * Normal colorectal anastomosis. Colon is without mass polyps or inflammation. Specimen(s): none sent Impression: Normal colonoscopy status post colectomy Post-procedure Recommendations: Colonoscopy in 5 years Disposition: same day surgery
== END 2024-03-16 15:20 | disposition home or self-care (01) ==
PROVIDERS: Family Provider Family Medicine; PCP Family Medicine; Referring Provider Surgery; Visit Provider Surgery
PROC: 0DJD8ZZ Inspection of Lower Intestinal Tract, Via Natural or Artificial Opening Endoscopic (ICD-10-PCS; CPT 45378; principal; 2024-03-16 14:15)
DX: Z12.11 Encounter for screening for malignant neoplasm of colon (principal); Z85.038 Personal history of other malignant neoplasm of large intestine
CPT/HCPCS: 45378; J2704